=== PATIENT | male | born 1985 | race Two or more races ===

== ENCOUNTER 2023-12-25 06:40 | Emergency (ER) | payer OTHER ==
[~2023-12-25] VITALS: Ht 172.7 cm; Wt 73.6 kg
[2023-12-25] MEDS: SODIUM CHLORIDE 0.9% 500 ML IVB ONE (07:00)
[2023-12-25 07:45] VITALS: PULSE 70; RESP 12; O2SAT 96
[2023-12-25 08:13] LABS: Basophils # (auto) 0 10 ^3/uL (0-0.2); Basophils % (auto) 0.8 % (0.0-2.0); Eosinophils # (auto) 0.2 10 ^3/uL (0-0.8); Eosinophils % (auto) 3.2 % (0.0-7.0); Hematocrit 40.9 % (41.0-53.0); Lymphocytes # (auto) 1.4 10 ^3/uL (0.4-5.4); Lymphocytes % (auto) 25.9 % (10.0-50.0); Mean Corpuscular Hemoglobin 27.7 pg (28.0-32.0); Mean Corpuscular Hgb Conc. 34.3 g/dL (32.0-36.0); Mean Corpuscular Volume 80.9 fL (80.0-100.0); Monocytes # (auto) 0.6 10 ^3/uL (0-1.3); Monocytes % (auto) 11.9 % (0.0-12.0); Neutrophils # (auto) 3.1 10 ^3/uL (1.6-8.6); Neutrophils % (auto) 58.2 % (37.0-80.0); Nucleated Red Blood Cells % 0.1 %; Red Blood Cells 5.05 10^6/uL (4.5-5.90); Red Cell Distribution Width 13.9 % (11.8-14.3); White Blood Cell 5.4 10^3/uL (4.4-10.8)
[2023-12-25 08:41] LABS: Alanine Aminotransferase 298 U/L (7-40); Alkaline Phosphatase 232 U/L (46-116)
[2023-12-25 08:42] LABS: Albumin 4.3 g/dL (3.2-4.8); Anion Gap 5 (5-15); Aspartate Aminotransferase 229 U/L (13-40); Bilirubin, Total 5.4 mg/dL (0.2-1.0); Blood Urea Nitrogen 8 mg/dL (9-23); Calcium 9.4 mg/dL (8.5-10.1); Carbon Dioxide 27 mmol/L (20-30); Chloride 106 mmol/L (98-107); Glucose 106 mg/dL (74-106); Potassium 3.8 mmol/L (3.5-5.1); Sodium 138 mmol/L (136-145); Total Protein 7.1 g/dL (5.7-8.2)
[2023-12-25 08:43] LABS: INR 0.98 (0.9-1.15); Partial Thromboplastin Time 27.3 SEC (24.5-34.5); Prothrombin Time 10.4 sec (9.3-11.8)
[2023-12-25 09:14] LABS: Urine Bacteria None Seen /hpf (None Seen)
[2023-12-25] MEDS ORDERED: ONDANSETRON HCL 4 MG/2 ML VIAL IV PRN (09:30)
[2023-12-25] MEDS ORDERED: DOCUSATE SOD 100 MG CAP PO PRN (09:30)
[2023-12-25] MEDS ORDERED: MORPHINE SULFATE INJ 2 MG/ml SYRG IV PRN (09:30)
[2023-12-25 10:03] LABS: Urine Blood Negative /uL (Negative); Urine Clarity Clear (Clear); Urine Color Dark-Yellow (Yellow); Urine Mucus FEW (None Seen); Urine Protein, UAD Negative (Negative); Urine Specific Gravity 1.016 (1.001-1.035); Urine Urobilinogen Normal (Negative); Urine WBC 2 /hpf (0 - 3); Urine pH 5.5 (5.0-9.0)
[2023-12-25 10:28] LABS: Lipase 49 U/L (12-53)
[2023-12-25] MEDS: SODIUM CHLORIDE 0.9% 1,000 ML IV SCH (10:28)
[2023-12-25] MEDS: PIPERACILLIN-TAZOB 3.375GM 100 ML IV ONE (10:30)
[2023-12-25] MEDS: PIPERACILLIN-TAZOB 3.375GM 100 ML IV SCH (18:29)
[2023-12-25 19:14] VITALS: BP 104/68; PULSE 78; RESP 16; TEMP 98.3; O2SAT 99
== END 2023-12-25 19:30 | disposition short-term general hospital (02) ==
LOC: ER 06:40
DX: K80.50 Calculus of bile duct without cholangitis or cholecystitis without obstruction (principal)
CPT/HCPCS: 36415; 74181; 76705; 80053; 81001; 83690; 85025; 85610; 85730; 86850; 86900; 86901; 96361; 96365; 96366; 99285; J2543; J7040